=== PATIENT | female | born 1985 | race Caucasian/White ===

== ENCOUNTER 2017-10-27 06:57 | Day surgery (SDC) | payer BC, OTHER ==
[~2017-10-27 06:57] MED LIST: DOXYCYCLINE HYCLATE 100 MG TABLET PO PRN; RINGER'S SOLUTION,LACTATED 1,000 ML IV PRN
[2017-10-27] MEDS ORDERED: RINGER'S SOLUTION,LACTATED 1,000 ML IV ONE (07:42)
[2017-10-27] MEDS ORDERED: LIDOCAINE HCL/EPINEPHRINE 50 ML VIAL IJ ONE (08:05)
--- NOTE | 2017-10-27 08:48 | OR ---
Operative Report - Dictated Report Narrative: DATE OF PROCEDURE: 10/27/2016 INDICATION: 32-year-old at 8 weeks with suspected molar PREOPERATIVE DIAGNOSIS: Possible molar POSTOPERATIVE DIAGNOSIS: Probable normal missed AB PROCEDURE: Suction curettage SURGEON: Justo Campuzano D.O. IT PROGRAM AUDITOR: None ANESTHESIA: IV sedation with local paracervical block ESTIMATED BLOOD LOSS: Minimal URINE OUTPUT: Not recorded FLUID REPLACEMENT: 550 mL FINDINGS: 9 week size uterus with small amount of tissue - significantly less than what was expected for ultrasound findings. SPECIMEN(S): Products of conception TECHNIQUE: Patient was taken to the operating room and placed in dorsal lithotomy position after adequate IV sedation. The anterior lip of the cervix was grasped with a long Allis clamp and paracervical block was given using 1% lidocaine with epinephrine. A 9 mm curved suction curet was inserted through the cervical canal into the uterine cavity. Suction was applied and the products of conception were removed. Because of the scant amount of tissue, a # 2 curet was gently inserted into the uterine cavity feeling along the uterine wall to assure no remaining products of conception. All instruments were removed from the cervix and vagina. Sponge, lap, instrument, needle count correct x 2. DISPOSITION: The patient was transferred to postanesthesia care unit in good condition.
[2017-10-27] MEDS ORDERED: MORPHINE SULFATE 2 MG/ML DISP.SYRIN IV PRN (09:07)
[2017-10-27] MEDS ORDERED: IBUPROFEN 800 MG TABLET PO PRN (09:08)
[2017-10-27] MEDS ORDERED: oxyCODONE HCL/ACETAMINOPHEN 1 TAB TABLET PO PRN (09:08)
[2017-10-27] MEDS ORDERED: oxyCODONE HCL/ACETAMINOPHEN 1 TAB TABLET ONE (09:20)
[2017-10-27] MEDS ORDERED: IBUPROFEN 400 MG TABLET ONE (09:21)
[2017-10-27 10:00] VITALS: BP 105/65
== END 2017-10-27 06:58 | disposition home or self-care (01) ==
LOC: AMB 06:57
PROVIDERS: ATTEND Obstetrics & Gynecology
PROC: 10D07Z6 Extraction of Products of Conception, Vacuum, Via Natural or Artificial Opening (ICD-10-PCS; principal; 2017-10-27)
DX: O01.0 Classical hydatidiform mole (principal); Z3A.09 9 weeks gestation of pregnancy

== ENCOUNTER 2019-01-20 15:56 | Inpatient (IN) ==
[2019-01-20] MEDS ORDERED: DEXTROSE 5%-LACTATED RINGERS 1,000 ML IV PRN (16:55)
[2019-01-20] MEDS ORDERED: OXYTOCIN/DEXTROSE 5%-WATER 30 UNITS/500 ML BAG IV ONE (16:55)
[2019-01-20] MEDS ORDERED: RINGER'S SOLUTION,LACTATED 1,000 ML IV ONE (16:55)
[2019-01-20] MEDS ORDERED: ONDANSETRON HCL/PF 2 MG/ML VIAL IV PRN (17:29)
[2019-01-20] MEDS ORDERED: NALOXONE HCL 1 MG/1 ML SYRG IV PRN (17:29)
[2019-01-20] MEDS ORDERED: BUPIVACAINE HCL/0.9 % NACL/PF 250 ML EP PRN (17:29)
[2019-01-20] MEDS ORDERED: BUPIVACAINE HCL/PF 30 ML VIAL EP SCH (17:30)
--- NOTE | 2019-01-20 18:11 | ANES ---
Anesthesia Pre Procedure Eval HOME MEDICATIONS Vits96/Iron Fum/Folic [ S] 1 tab PO DAILY 01/20/19 [Last Taken Unknown] Allergies/Adverse Reactions: Allergies Allergy/AdvReac Type Severity Reaction Status Date / Time amoxicillin AdvReac Mild RASH Verified 01/20/19 16:08 - Planned Procedure Planned Procedure: Labor epidural Medication List Reviewed:: Yes Allergies Verified: Yes Medical History (Updated 06/20/18 @ 16:47 by Sagar Campuzano DO) Intrahepatic cholestasis of (Resolved) Onset Date: 2012 Complete molar (Resolved) Onset Date: 11/02/17 Constipation, chronic Onset Date: Unknown Spontaneous Onset Date: 07/28/17 Surgical History (Updated 04/13/18 @ 08:38 by Anitra Velasquez RN) H/O dilation and curettage Onset Date: 10/27/17 Suction curettage- molar Family History (Updated 04/13/18 @ 08:45 by Anitra Velasquez RN) Mother Endometriosis UTI (urinary tract infection) frequent Mitral valve prolapse Father Alive and well Grandfather , Maternal Myocardial infarction Grandfather , Paternal Hypertension Diabetes Cirrhosis of liver Grandmother , Maternal Coronary artery disease Skin cancer Hypertension Grandmother , Paternal Ovarian cancer Hypercholesterolemia - Cardiovascular Tolerate Activity: Good - Anesthesia Assessment and Plan ASA Class: PS, II Anesthesia Type Plan: Epidural
[2019-01-20 18:21] LABS: Cocaine Ur Negative (NEGATIVE); Urine Barbiturate Negative (NEGATIVE); Urine Benzodiazepines Negative (NEGATIVE); Urine Opiates Negative (NEGATIVE); Urine PCP Negative (NEGATIVE); Urine THC Negative (NEGATIVE)
--- NOTE | 2019-01-20 18:32 | ANES ---
Anesthesia Procedure Note Procedure Note: ANESTHESIA PROCEDURE NOTE Date of Procedure: 01/20/2019. Time of procedure: 1814. Performed by: Giacomo Cedillo CRNA Radar Signal Processing Engineer: None. Preprocedure diagnosis: Active labor. Post procedure diagnosis: Same. Procedure: Insertion of labor epidural. Indications: The patient is a 33 -year-old female in active labor requesting labor epidural for pain management. Findings: See below. Details of the procedure: The patient was placed in a sitting position. DuraPrep as well as Betadine swabs X3 was applied to the patient's back. Patient was then draped in a sterile fashion. Lidocaine 1% was infiltrated to the skin and subcutaneous tissues at the level of the L3-4 interspace. The epidural space was identified using a 18-gauge Tuohy needle with [id number] technique. Epidural catheter was inserted to a depth of 10 centimeters at skin. Negative test dose was elicited using 3 mL of 1.5% preservative-free lidocaine plus epinephrine 1 200,000. The epidural catheter was then taped and secured in place. A loading dose of 8 mL of 0.25% preservative-free bupivacaine was administered to the epidural catheter after negative aspiration for blood and CSF. EBL: Minimal. Fluids: N/A. Specimen: N/A. Post procedure condition: The patient tolerated the procedure well. No complications were noted. Thank you for this consultation. Giacomo Cedillo CRNA
--- NOTE | 2019-01-20 18:33 | ANES ---
Post Anesthesia Assessment - Vital Signs Vitals: Last Vital Signs Temp 36.2 C 01/20/19 16:30 Pulse 81 01/20/19 16:30 Resp 20 01/20/19 16:30 BP 119/79 01/20/19 16:30 Pulse Ox 99 01/20/19 16:30 Airway Patency: Normal - Mental Status Level Of Consciousness: Awake - N/V Assessment Nausea/Vomiting Presence: None Dehydration:: No
[2019-01-20] MEDS ORDERED: HYDROcodone/ACETAMINOPHEN 1 EACH TABLET PO PRN (19:46)
[2019-01-20] MEDS ORDERED: BISACODYL 10 MG SUPP.RECT RC PRN (19:46)
[2019-01-20] MEDS ORDERED: HYDROCORTISONE 30 APPL TUBE TP PRN (19:46)
[2019-01-20] MEDS ORDERED: BENZOCAINE/MENTHOL 81 SPRAY CAN TP PRN (19:46)
[2019-01-20] MEDS ORDERED: GLYCERIN/WITCH HAZEL LEAF 40 APPL BOX TP PRN (19:46)
[2019-01-20] MEDS ORDERED: SENNOSIDES 8.6 MG TABLET PO PRN (19:46)
[2019-01-20] MEDS ORDERED: diphenhydrAMINE HCL 25 MG CAPSULE PO PRN (19:46)
[2019-01-20] MEDS ORDERED: ceFAZolin SODIUM 1 GM VIAL IV ONE (19:48)
--- NOTE | 2019-01-20 20:04 | HP ---
Chief Complaint - Chief Complaint Date of Service: 01/20/19 Chief Complaint: labor, contractions History of Present Illness: 33 yo, CF, at 39.6 weeks, with EDC of 01/21/19 by LMP 04/16/18. Presents for labor contractions. Dilated to 5 cm, 100% effaced and -2 station with a bulging bag. Progressed to rim with a bulging bag in about 1.5 hours. Received epidural at the time. AROM after epidural with moderate clear fluid. Baby delivered soon after AROM without complications. This has no complications. labs: B negative Rubella immune GBS negative Medical History (Updated 06/20/18 @ 16:47 by Sagar Campuzano DO) Intrahepatic cholestasis of (Resolved) Onset Date: 2012 Complete molar (Resolved) Onset Date: 11/02/17 Constipation, chronic Onset Date: Unknown Spontaneous Onset Date: 07/28/17 Surgical History: Surgical History (Updated 04/13/18 @ 08:38 by Anitra Velasquez RN) H/O dilation and curettage Onset Date: 10/27/17 Suction curettage- molar Family History: Family History (Updated 04/13/18 @ 08:45 by Anitra Velasquez RN) Mother Endometriosis UTI (urinary tract infection) frequent Mitral valve prolapse Father Alive and well Grandfather , Maternal Myocardial infarction Grandfather , Paternal Hypertension Diabetes Cirrhosis of liver Grandmother , Maternal Coronary artery disease Skin cancer Hypertension Grandmother , Paternal Ovarian cancer Hypercholesterolemia Social History: Preferred Language Panamanian Smoking Status Never smoker Abuse History No History of abuse Psych History Hx of Anxiety (Last Updated 01/16/19 @ 14:53 by Sagar Campuzano DO) No Social History Section defined Review Of Systems (GEN) - Review of Systems Abdominal: Present: Other - contractions Musculoskeletal: Present: Back Pain Misc: All systems neg except as marked Allergies/Adverse Reactions: Allergies Allergy/AdvReac Type Severity Reaction Status Date / Time amoxicillin AdvReac Mild RASH Verified 01/20/19 16:08 Home Medications: HOME MEDICATIONS Vits96/Iron Fum/Folic [ S] 1 tab PO DAILY 01/20/19 [Last Taken Unknown] Exam - Exam Vital Signs: Vital Signs - Last Taken Temp 36.2 C 01/20/19 16:30 Pulse 81 01/20/19 16:30 Resp 20 01/20/19 16:30 BP 119/79 01/20/19 16:30 Pulse Ox 99 01/20/19 16:30 Constitutional: Present: Alert, Oriented x3, Cooperative ENT Exam: Present: hearing grossly normal Neck: Present: supple Respiratory: Present: lungs clear, normal breath sounds, no respiratory distress, No rales, No wheezing Cardiovascular/Chest: Present: normal peripheral pulses, regular rate, rhythm, no murmur Abdomen: Present: soft, nontender, other - gravid /Rectal: Present: Other - 10 cm, 100%, 0 station after epidural Extremity: Present: no pedal edema, no calf tenderness Skin Exam: Present: normal color, warm/dry, no cyanosis Appearance: Present: appropriate appearance Eye contact: Present: cooperative, good eye contact, normal speech Diagnostic Studies: Laboratory Results Negative (NEGATIVE) 01/20/19 17:43 Negative (NEGATIVE) 01/20/19 17:43 Ur Phencyclidine Scrn Negative (NEGATIVE) 01/20/19 17:43 Urine Amphetamine Negative (NEGATIVE) 01/20/19 17:43 U Benzodiazepines Scrn Negative (NEGATIVE) 01/20/19 17:43 Negative (NEGATIVE) 01/20/19 17:43 Negative (NEGATIVE) 01/20/19 17:43 bedside u/s: cephalic Assessment/Plan - Narrative Narrative: A/P : 39.6 weeks in active labor, progressed from 5 cm to complete in 1.5 hours with a bulging bag, s/p epidural, reassuring status, AROM and delivered a baby girl with a few pushes without complications.
--- NOTE | 2019-01-20 20:14 | OR ---
Operative Report - Dictated Report Narrative: Spontaneous Vaginal Delivery Note: 33 yo, , 39.6 weeks labor, dilated to 5 cm and progressed to rim in 1.5 hours GBS negative AROM: clear Analgesia: epidural Progressed to complete without complications. Perineum cleaned with betadine. Pushed with good descent. Head delivered in SHEILA over the perineum. No nuchal cord. The anterior shoulder delivered, followed by the posterior shoulder and the rest of the baby. Baby cried at perineum. Baby placed on maternal abdomen for drying and care by the nursing. Cord was clamped at one minute of life and cut by the father of the baby. Cord blood was obtained. Cord was very thin and small, It was avulsed during traction. Placenta removed manually and was intact with a 3 vessel cord. Mother and baby tolerated the delivery well. Laceration: 1st degree vaginal. Repaired with 3-0 Vicryl suture. EBL 200 ml. : female, 3100 grams. 8/9. Time of delivery: 18:57 Maxim Tang MD History for Definition: * The number of deliveries resulting in a live the patient experienced prior to current hospitalization * The previous delivery of live twins or any live multiple gestation is considered one live event. *If primagravida or nulliparous is documented select zero for the number of previous live births. Live Events: 1
[2019-01-20] MEDS ORDERED: ceFAZolin SODIUM 1 GM VIAL IV SCH (20:15)
[2019-01-20] MEDS: IBUPROFEN 800 MG TABLET PO PRN (21:36)
[2019-01-20] MEDS: DOCUSATE SODIUM 100 MG CAPSULE PO SCH (21:36)
[2019-01-21] MEDS ORDERED: RHO(D) IMMUNE GLOBULIN 1,500 UNIT SYRINGE IM ONE (02:03)
[2019-01-21] MEDS: IBUPROFEN 800 MG TABLET PO PRN ×3 (05:15→20:03)
[2019-01-21] MEDS ORDERED: RHO(D) IMMUNE GLOBULIN 1,500 UNIT SYRINGE IM SCH (10:00)
[2019-01-21] MEDS: DOCUSATE SODIUM 100 MG CAPSULE PO SCH ×2 (10:08→20:03)
--- NOTE | 2019-01-21 12:32 | PN ---
Subjective - Date and Time Seen Date: 01/21/19 Time: 12:31 Objective - Vitals Vitals: Last Vital Signs Temp 36.9 C 01/21/19 07:50 Pulse 77 01/21/19 07:50 Resp 16 01/21/19 07:50 BP 99/63 01/21/19 07:50 Pulse Ox 97 01/21/19 07:50 Patient denies complaints. Breast-feeding Lochia wnl Abdomen - soft, nontender Uterus - firm, at umbilicus - 1 No calf tenderness Impression: day #1 - s/p spontaneous vaginal delivery. Plan: Continue routine care Cauti Physician Documentation - Urinary Catheter Management Urethral (Verma) Date of Insertion: 01/20/19 Time of Insertion: 18:40 Date of Removal: 01/20/19 Time of Removal: 18:53
[2019-01-22] MEDS: IBUPROFEN 800 MG TABLET PO PRN (04:41)
[2019-01-22 08:15] VITALS: BP 103/66
--- NOTE | 2019-01-22 10:57 | PN ---
Subjective - Date and Time Seen Date: 01/22/19 Subjective Narrative: 4, s/p doing well. no complaints. . normal lochia. Objective - Vitals Vitals: Last Vital Signs Temp 36.8 C 01/22/19 08:13 Pulse 69 01/22/19 08:13 Resp 18 01/22/19 08:13 BP 103/66 01/22/19 08:13 Pulse Ox 96 01/22/19 08:13 - Exam Constitutional: Present: Alert, Oriented x3, Cooperative Respiratory: Present: no respiratory distress Cardiovascular/Chest: Present: normal peripheral pulses Abdomen: Present: soft, nontender, nondistended, other - fundus firm at umbilicus, non-tender Extremity: Present: no pedal edema, no calf tenderness Skin Exam: Present: normal color, warm/dry, no cyanosis Cauti Physician Documentation - Urinary Catheter Management Urethral (Verma) Date of Insertion: 01/20/19 Time of Insertion: 18:40 Date of Removal: 01/20/19 Time of Removal: 18:53 Assessment/Plan Plan Narrative: A: PP day 2, s/p , stable and well. Plan: will discharge home today.
== END 2019-01-22 12:25 | disposition home or self-care (01) | DRG 807 ==
LOC: OBCLINIC 15:56 → OB 16:51 → MS 01-21 18:14
PROVIDERS: ADMIT Obstetrics & Gynecology; ATTEND Obstetrics & Gynecology
CPT/HCPCS: 59025; 80307; 85460; J2790